=== PATIENT | female | born 1965 | race Caucasian/White ===

== ENCOUNTER 2018-05-03 16:39 | Inpatient (IN) | payer OTHER ==
[~2018-05-03] VITALS: Ht 170.2 cm; Wt 116.1 kg
[2018-05-03 16:42] VITALS: Ht 170.2 cm; Wt 116.1 kg
[2018-05-03 17:25] LABS: BASOPHIL % 0.3 % (0-2); PLATELET COUNT 363 x10^3mcL (130-400); RED CELL DISTRIBUTION WIDTH 14.5 % (11.5-14.5)
[2018-05-03 17:30] LABS: microscopic required? YES; urine erythrocyte TRACE (NEGATIVE)
[2018-05-03 17:30] LABS: CALCIUM 9.3 mg/dL (8.5-10.1); CARBON DIOXIDE 26.7 mmol/L (21-32); CHLORIDE SERUM 100 mmol/L (98-107); CREATININE SERUM 0.9 mg/dL (0.6-1.0); GFR1 > 60 mL/min; GLUCOSE SERUM 104 mg/dL (74-106); POTASSIUM SERUM 3.4 mmol/L (3.5-5.1); SODIUM SERUM 134 mmol/L (136-145)
[2018-05-03 17:34] LABS: AMPHETAMINE QUAL UR NONE DETECTED (See below)
[2018-05-03 17:34] LABS: ALKALINE PHOSPHATASE 125 U/L (46-116); ALT/SGPT 23 U/L (14-59); AST/SGOT 18 U/L (15-37); BILIRUBIN TOTAL 0.34 mg/dL (0.20-1.00); TOTAL PROTEIN, SERUM 7.7 g/dL (6.4-8.2)
[2018-05-03 17:35] LABS: ALBUMIN 3.2 g/dL (3.4-5.0)
[2018-05-03] MEDS ORDERED: SYNTHROID0.088 MG PO (17:37)
[2018-05-03] MEDS ORDERED: PROZAC40 MG PO (17:38)
[2018-05-03] MEDS ORDERED: HYDROCHLOROTHIA25 MG PO (17:38)
[2018-05-03] MEDS ORDERED: ZESTRIL40 MG PO (17:38)
[2018-05-03] MEDS ORDERED: ATIVAN0.5 M1 PO (17:38)
[2018-05-03] MEDS ORDERED: LEVAQUIN750 MG PO (17:39)
[2018-05-03] MEDS ORDERED: IBUPROFEN400 MG PO (17:39)
[2018-05-03] MEDS ORDERED: WELLBUTRIN XL150 M1 PO (17:39)
[2018-05-03 20:31] VITALS: BP 143/93
[2018-05-03 22:26] VITALS: BP 131/69
[2018-05-04 05:34] VITALS: BP 130/76
[2018-05-04 06:43] LABS: BASOPHIL % 0.3 % (0-2); PLATELET COUNT 362 x10^3mcL (130-400); RED CELL DISTRIBUTION WIDTH 14.3 % (11.5-14.5)
[2018-05-04 06:58] LABS: CALCIUM 8.7 mg/dL (8.5-10.1); CHLORIDE SERUM 103 mmol/L (98-107); CREATININE SERUM 0.8 mg/dL (0.6-1.0); GFR1 > 60 mL/min; GLUCOSE SERUM 95 mg/dL (74-106); POTASSIUM SERUM 3.4 mmol/L (3.5-5.1); SODIUM SERUM 138 mmol/L (136-145)
[2018-05-04 10:04] VITALS: BP 140/96
[2018-05-04 17:30] VITALS: BP 164/109
[2018-05-04 21:11] VITALS: BP 146/85
[2018-05-04 22:50] VITALS: BP 146/85
== END 2018-05-04 23:40 | disposition short-term general hospital (02) | DRG 72 ==
LOC: ED 16:39 → MU 19:05
PROVIDERS: Emergency Medicine; Internal Medicine Pulmonary Disease
DX: G93.40 Encephalopathy, unspecified (principal); F41.9 Anxiety disorder, unspecified; F32.9 Major depressive disorder, single episode, unspecified; I10 Essential (primary) hypertension; J01.90 Acute sinusitis, unspecified; Z87.891 Personal history of nicotine dependence
CPT/HCPCS: 83880; A9577; G0480; J0295; J1885; J2060; J7040; Q0092